=== PATIENT | female | born 1955 | race African-American/Black ===

== ENCOUNTER 2020-11-13 13:51 | Outpatient (CLI) | payer OTHER | END 2020-11-13 13:52 | disposition home or self-care (01) | LOC: CSHMAMMO 13:51 | PROVIDERS: ATTEND Family Medicine | DX: Z00.00 Encounter for general adult medical examination without abnormal findings (principal); Z12.31 Encounter for screening mammogram for malignant neoplasm of breast | CPT/HCPCS: 77063; 77067; 77080 ==

== ENCOUNTER 2021-11-16 10:04 | Outpatient (CLI) | payer OTHER, MEDICARE | END 2021-11-16 10:05 | disposition home or self-care (01) | LOC: CSHMAMMO 10:04 | PROVIDERS: ATTEND Family Medicine | DX: Z12.31 Encounter for screening mammogram for malignant neoplasm of breast (principal) | CPT/HCPCS: 77063; 77067 ==

== ENCOUNTER 2022-10-16 21:26 | Inpatient (IN) | payer OTHER ==
[2022-10-16 22:44] LABS: Hemoglobin 16.1 g/dL (12.0-15.5); Mean Corpuscular HGB CONC 35.2 g/dL (32.0-36.0); Mean Corpuscular Hemoglobin 32.3 pg (27.0-33.0); Mean Corpuscular Volume 91.8 fl (81.6-98.3); Mean Platelet Volume 9.9 fl (7.4-10.4); Platelet Count 182 10x3/uL (150-450); RBC Distribution Width 14.7 % (11.5-14.5); Red Blood Cell (RBC) Count 4.99 10x6/uL (3.90-5.03); White Blood Cell (WBC) Count 12.2 10x3/uL (3.5-10.5)
[2022-10-16 22:45] LABS: MDiff Complete? YES
[2022-10-16] MEDS ORDERED: methylPREDNISolone Sod Succ/PF 125 MG/2 ML VIAL ONE (22:54)
[2022-10-16] MEDS ORDERED: cefTRIAXone (ROCEPHIN) 2 GM VIAL ONE (22:55)
[2022-10-16 22:58] LABS: ALT (SGPT) 10 U/L (8-55); AST (SGOT) 20 U/L (5-34); Albumin 4.1 g/dL (3.4-4.8); Alkaline Phosphatase 70 U/L (40-110); Anion Gap 16 mmol/L (10-20); BUN (Urea Nitrogen) 9 mg/dL (9.8-20.1); Bilirubin, Total 0.6 mg/dL (0.2-1.2); Calc. Creatinine Clearance 0 mL/min (70-130); Carbon Dioxide 21 mmol/L (23-31); Chloride 97 mmol/L (98-107); Estimated GFR 96; Globulin 2.8 g/dL (2.4-3.5); Glucose 128 mg/dL (80-115); Lipase 5 U/L (8-78); Potassium 4.3 mmol/L (3.5-5.1); Protein, Total 6.9 g/dL (5.8-8.1); Sodium 130 mmol/L (136-145)
[2022-10-16] MEDS ORDERED: Ipratropium/Albuterol 3 ML NEB ONE ×2 (23:19→23:33)
[2022-10-16 23:33] LABS: Band 2 % (5-11); Lymphocytes 2 % (21-51); Monocytes 8 % (0-10); Neutrophil 88 % (42-75)
[2022-10-16 23:35] LABS: Diff Comment (RBC Morph SCRN) NORMAL; Platelet Morphology Comment Appears Adequate
[2022-10-16] MEDS ORDERED: Acetaminophen 325 MG TAB PO PRN (23:47)
[2022-10-16] MEDS ORDERED: Ondansetron PF 4 MG/2 ML Vial IVP PRN (23:47)
[2022-10-16] MEDS ORDERED: Ventolin HFA Inhaler 60 PUFF INHALER INH PRN (23:54)
[2022-10-17] MEDS ORDERED: Azithromycin 500 MG VIAL ONE (00:02)
[2022-10-17 00:08] LABS: SARS-CoV-2 NAA Rapid Test Not Detected (NotDetected)
[2022-10-17] MEDS ORDERED: Azithromycin 500 MG in Sodium Chloride 0.9% 250 ML 250 ML IVPB SCH (01:00)
[2022-10-17 03:47] LABS: #Monocytes 0.1 10x3/uL (0.0-1.1); #Neutrophils 9.9 10x3/uL (1.5-8.4); %Basophils 0.2 % (0.0-2.0); %Eosinophils 0.3 % (0.0-6.0); %Lymphocytes 3.3 % (18.0-47.0); %Monocytes 0.9 % (0.0-10.0); %Neutrophils 94.9 % (40.0-75.0); Hemoglobin 14.3 g/dL (12.0-15.5); Mean Corpuscular HGB CONC 33.3 g/dL (32.0-36.0); Mean Corpuscular Hemoglobin 31.4 pg (27.0-33.0); Mean Corpuscular Volume 94.3 fl (81.6-98.3); Mean Platelet Volume 10.5 fl (7.4-10.4); Platelet Count 181 10x3/uL (150-450); RBC Distribution Width 14.9 % (11.5-14.5); Red Blood Cell (RBC) Count 4.55 10x6/uL (3.90-5.03); White Blood Cell (WBC) Count 10.4 10x3/uL (3.5-10.5)
[2022-10-17 03:49] LABS: Anion Gap 13 mmol/L (10-20); BUN (Urea Nitrogen) 8 mg/dL (9.8-20.1); Calc. Creatinine Clearance 0 mL/min (70-130); Carbon Dioxide 21 mmol/L (23-31); Chloride 105 mmol/L (98-107); Potassium 3.8 mmol/L (3.5-5.1); Sodium 135 mmol/L (136-145)
[2022-10-17 03:50] LABS: Calcium 7.8 mg/dL (7.8-10.44); Estimated GFR 98; Glucose 133 mg/dL (80-115)
[2022-10-17] MEDS: Ipratropium/Albuterol 3 ML NEB NEB SCH ×5 (05:10→23:31)
[2022-10-17 05:18] LABS: Bilirubin Neg (Negative); Blood, Urine Negative (Negative); Clarity Slightly Cloudy (Clear); Glucose, Urine (Dipstick) Normal (Negative); Ketone, Urine Negative (Negative); Leukocyte Negative (Negative); Nitrite Negative (Negative); Protein, Urine (Dipstick) 30 mg/dl (Neg-Trace); Urobilinogen Normal mg/dL (Less than 2); pH, Urine 6.5 (5.0-9.0)
[2022-10-17 05:44] LABS: Bacteria/HPF None Seen HPF (None Seen); RBC/HPF 0-3 HPF (0-3); Squamous Epithelial 0-3 HPF (0-3); WBC/HPF 0-3 HPF (0-3)
[2022-10-17] MEDS ORDERED: methylPREDNISolone Sod Succ/PF 125 MG/2 ML VIAL ONE (06:22)
[2022-10-17] MEDS ORDERED: methylPREDNISolone Sod Succ 40 MG VIAL ONE (06:25)
[2022-10-17] MEDS: methylPREDNISolone Sod Succ 40 MG VIAL IVP SCH ×3 (06:37→20:04)
[2022-10-17] MEDS ORDERED: Ipratropium/Albuterol 3 ML NEB ONE (07:36)
[2022-10-17] MEDS: Lisinopril 10 MG TAB PO SCH (10:51)
[2022-10-17] MEDS: Clopidogrel Bisulfate 75 MG TAB PO SCH (10:51)
[2022-10-17] MEDS: Metoprolol Tartrate 25 MG TAB PO SCH ×2 (10:52→20:00)
[2022-10-17] MEDS: Aspirin 81 mg Enteric Coated Tablet PO SCH (10:52)
[2022-10-17 11:12] LABS: Magnesium 1.5 mg/dL (1.6-2.6); Phosphorus 3.1 mg/dL (2.3-4.7)
[2022-10-17] MEDS ORDERED: Electrolyte Replacement Protocol 1 EACH FS SCH (14:30)
[2022-10-17] MEDS ORDERED: Magnesium 2 GM/50 ML(in water) 2 GM in Premix Bag 1 BAG IVPB SCH ×2 (14:30→20:30)
[2022-10-17 15:58] LABS: Legionella Urinary Ag Negative (Negative)
[2022-10-17 15:59] LABS: Strep pneumo Urine Ag NEGATIVE (NEGATIVE)
[2022-10-17] MEDS: Cefepime 2 GM in Sodium Chloride 0.9% 100 ML IVPB SCH (16:07)
[2022-10-17] MEDS: Budesonide 0.5 MG/2 ML NEB NEB SCH (19:24)
[2022-10-17] MEDS: guaiFENesin ER 600 MG TAB PO SCH (20:00)
[2022-10-17] MEDS: Atorvastatin Calcium 40 MG TAB PO SCH (20:00)
[2022-10-17] MEDS ORDERED: Levalbuterol HCl 0.63 MG/3 ML NEB NEB SCH (20:15)
[2022-10-17] MEDS ORDERED: Mometasone/Formoterol 200/5 60 PUFF INH SCH (20:15)
[2022-10-17] MEDS ORDERED: cefTRIAXone\\ROCEPHIN 1 GM in Sodium Chloride 0.9% 100 ML IVPB SCH (23:59)
[2022-10-18] MEDS: methylPREDNISolone Sod Succ 40 MG VIAL IVP SCH ×4 (00:25→18:16)
[2022-10-18] MEDS: Azithromycin 500 MG in Sodium Chloride 0.9% 250 ML 250 ML IVPB SCH (00:35)
[2022-10-18] MEDS: Ipratropium/Albuterol 3 ML NEB NEB SCH ×6 (02:53→23:20)
[2022-10-18] MEDS: Cefepime 2 GM in Sodium Chloride 0.9% 100 ML IVPB SCH ×2 (03:35→16:36)
[2022-10-18 05:41] LABS: #Monocytes 0.5 10x3/uL (0.0-1.1); #Neutrophils 6.9 10x3/uL (1.5-8.4); %Basophils 0.1 % (0.0-2.0); %Lymphocytes 3.5 % (18.0-47.0); %Monocytes 6.6 % (0.0-10.0); %Neutrophils 89.7 % (40.0-75.0); Hemoglobin 14.4 g/dL (12.0-15.5); Mean Corpuscular Hemoglobin 31.3 pg (27.0-33.0); Mean Platelet Volume 10.5 fl (7.4-10.4); Platelet Count 161 10x3/uL (150-450); RBC Distribution Width 15.1 % (11.5-14.5); White Blood Cell (WBC) Count 7.7 10x3/uL (3.5-10.5)
[2022-10-18 06:01] LABS: Anion Gap 15 mmol/L (10-20); BUN (Urea Nitrogen) 11 mg/dL (9.8-20.1); Calc. Creatinine Clearance 71 mL/min (70-130); Calcium 8.3 mg/dL (7.8-10.44); Carbon Dioxide 24 mmol/L (23-31); Chloride 102 mmol/L (98-107); Estimated GFR 98; Glucose 116 mg/dL (80-115); Magnesium 2.8 mg/dL (1.6-2.6); Potassium 4.6 mmol/L (3.5-5.1); Sodium 136 mmol/L (136-145)
[2022-10-18] MEDS ORDERED: Mometasone/Formoterol 200/5 60 PUFF INH SCH (06:30)
[2022-10-18] MEDS: Budesonide 0.5 MG/2 ML NEB NEB SCH ×2 (08:20→19:40)
[2022-10-18] MEDS: guaiFENesin ER 600 MG TAB PO SCH ×2 (09:12→20:56)
[2022-10-18] MEDS: Aspirin 81 mg Enteric Coated Tablet PO SCH (09:12)
[2022-10-18] MEDS: Loratadine 10 MG TAB PO SCH (09:12)
[2022-10-18] MEDS: Metoprolol Tartrate 25 MG TAB PO SCH ×2 (09:12→20:56)
[2022-10-18] MEDS: Lisinopril 10 MG TAB PO SCH (09:12)
[2022-10-18] MEDS: Clopidogrel Bisulfate 75 MG TAB PO SCH (09:13)
[2022-10-18] MEDS: Ipratropium/Albuterol 3 ML NEB NEB PRN (13:05)
[2022-10-18 16:02] LABS: Actual Bicarbonate (HCO3v) 28 mEq/L (22-28); Base Excess -1.1 mEq/L (-2 - +2); Puncture Site Other Site; pH (venous) 7.26 (7.32-7.43)
[2022-10-18] MEDS: Atorvastatin Calcium 40 MG TAB PO SCH (20:56)
[2022-10-19] MEDS: methylPREDNISolone Sod Succ 40 MG VIAL IVP SCH ×4 (00:16→18:14)
[2022-10-19] MEDS: Azithromycin 500 MG in Sodium Chloride 0.9% 250 ML 250 ML IVPB SCH ×2 (00:16→23:28)
[2022-10-19] MEDS: Cefepime 2 GM in Sodium Chloride 0.9% 100 ML IVPB SCH ×2 (02:22→14:03)
[2022-10-19] MEDS: Ipratropium/Albuterol 3 ML NEB NEB SCH ×6 (03:05→22:45)
[2022-10-19 04:01] LABS: Actual Bicarbonate (HCO3v) 28 mEq/L (22-28); Base Excess 3.5 mEq/L (-2 - +2); Calcium, Ionized (venous) 1.06 mmol/L (1.16-1.32); Chloride (VBG) 100 mmol/L (98-106); Critical Notified By: CP.PH; Hemoglobin (Hb) 15.3 g/dL (11.7-16.1); Potassium (VBG) 4.58 mmol/L (3.70-5.30); Puncture Site Other Site; Sodium 134.3 mmol/L (133-146); pH (venous) 7.43 (7.32-7.43)
[2022-10-19 05:12] LABS: #Eosinphils 0.1 10x3/uL (0.0-0.5); #Monocytes 0.2 10x3/uL (0.0-1.1); #Neutrophils 5.5 10x3/uL (1.5-8.4); %Basophils 0.2 % (0.0-2.0); %Eosinophils 1.9 % (0.0-6.0); %Lymphocytes 6.1 % (18.0-47.0); %Monocytes 2.4 % (0.0-10.0); %Neutrophils 89.2 % (40.0-75.0); Hemoglobin 14.5 g/dL (12.0-15.5); Mean Corpuscular HGB CONC 33.2 g/dL (32.0-36.0); Mean Corpuscular Hemoglobin 31.3 pg (27.0-33.0); Mean Corpuscular Volume 94.2 fl (81.6-98.3); Mean Platelet Volume 11.4 fl (7.4-10.4); Platelet Count 158 10x3/uL (150-450); RBC Distribution Width 15.1 % (11.5-14.5); Red Blood Cell (RBC) Count 4.64 10x6/uL (3.90-5.03); White Blood Cell (WBC) Count 6.2 10x3/uL (3.5-10.5)
[2022-10-19 05:23] LABS: Anion Gap 16 mmol/L (10-20); BUN (Urea Nitrogen) 16 mg/dL (9.8-20.1); Calc. Creatinine Clearance 74 mL/min (70-130); Calcium 8.7 mg/dL (7.8-10.44); Carbon Dioxide 24 mmol/L (23-31); Chloride 101 mmol/L (98-107); Estimated GFR 99; Glucose 100 mg/dL (80-115); Potassium 4.6 mmol/L (3.5-5.1); Sodium 136 mmol/L (136-145)
[2022-10-19] MEDS: Budesonide 0.5 MG/2 ML NEB NEB SCH ×2 (07:20→19:05)
[2022-10-19] MEDS: Metoprolol Tartrate 25 MG TAB PO SCH ×2 (09:15→20:29)
[2022-10-19] MEDS: Aspirin 81 mg Enteric Coated Tablet PO SCH (09:15)
[2022-10-19] MEDS: guaiFENesin ER 600 MG TAB PO SCH ×2 (09:15→20:29)
[2022-10-19] MEDS: Clopidogrel Bisulfate 75 MG TAB PO SCH (09:15)
[2022-10-19] MEDS: Heparin 5,000 UNITS/ML VIAL SC SCH ×2 (09:16→20:29)
[2022-10-19] MEDS: Lisinopril 10 MG TAB PO SCH (09:16)
[2022-10-19] MEDS: Loratadine 10 MG TAB PO SCH (09:16)
[2022-10-19] MEDS: Benzonatate 100 MG CAP PO PRN (16:19)
[2022-10-19] MEDS: Atorvastatin Calcium 40 MG TAB PO SCH (20:29)
[2022-10-19] MEDS: methylPREDNISolone Sod Succ/PF 125 MG/2 ML VIAL IVP SCH (23:44)
[2022-10-20] MEDS: Ipratropium/Albuterol 3 ML NEB NEB SCH ×6 (02:40→23:12)
[2022-10-20] MEDS: Cefepime 2 GM in Sodium Chloride 0.9% 100 ML IVPB SCH ×2 (04:18→15:12)
[2022-10-20] MEDS: methylPREDNISolone Sod Succ/PF 125 MG/2 ML VIAL IVP SCH ×3 (05:28→17:22)
[2022-10-20 05:56] VITALS: BMI 21.2
[2022-10-20 06:26] LABS: Anion Gap 13 mmol/L (10-20); BUN (Urea Nitrogen) 17 mg/dL (9.8-20.1); Calc. Creatinine Clearance 76 mL/min (70-130); Calcium 8.5 mg/dL (7.8-10.44); Carbon Dioxide 27 mmol/L (23-31); Chloride 101 mmol/L (98-107); Estimated GFR 99; Glucose 113 mg/dL (80-115); Magnesium 2.1 mg/dL (1.6-2.6); Potassium 4.2 mmol/L (3.5-5.1); Sodium 137 mmol/L (136-145)
[2022-10-20 07:16] LABS: #Monocytes 0.2 10x3/uL (0.0-1.1); #Neutrophils 4.3 10x3/uL (1.5-8.4); %Lymphocytes 8.9 % (18.0-47.0); %Monocytes 3.1 % (0.0-10.0); %Neutrophils 87.6 % (40.0-75.0); Hemoglobin 13.9 g/dL (12.0-15.5); Mean Corpuscular HGB CONC 33.7 g/dL (32.0-36.0); Mean Corpuscular Hemoglobin 31.4 pg (27.0-33.0); Mean Corpuscular Volume 93.2 fl (81.6-98.3); Mean Platelet Volume 10.9 fl (7.4-10.4); Platelet Count 180 10x3/uL (150-450); RBC Distribution Width 14.7 % (11.5-14.5); Red Blood Cell (RBC) Count 4.43 10x6/uL (3.90-5.03); White Blood Cell (WBC) Count 4.9 10x3/uL (3.5-10.5)
[2022-10-20] MEDS: Mometasone/Formoterol 200/5 60 PUFF INH SCH ×2 (07:34→20:20)
[2022-10-20] MEDS: Lisinopril 10 MG TAB PO SCH (08:02)
[2022-10-20] MEDS: Clopidogrel Bisulfate 75 MG TAB PO SCH (08:02)
[2022-10-20] MEDS: guaiFENesin ER 600 MG TAB PO SCH ×2 (08:02→21:15)
[2022-10-20] MEDS: Loratadine 10 MG TAB PO SCH (08:02)
[2022-10-20] MEDS: Heparin 5,000 UNITS/ML VIAL SC SCH ×2 (08:02→21:15)
[2022-10-20] MEDS: Aspirin 81 mg Enteric Coated Tablet PO SCH (08:02)
[2022-10-20] MEDS: Metoprolol Tartrate 25 MG TAB PO SCH ×2 (08:02→21:15)
[2022-10-20] MEDS ORDERED: Cefepime 2 GM VIAL ONE (15:03)
[2022-10-20] MEDS ORDERED: methylPREDNISolone Sod Succ/PF 125 MG/2 ML VIAL IVP SCH ×2 (20:58)
[2022-10-20] MEDS: Atorvastatin Calcium 40 MG TAB PO SCH (21:15)
[2022-10-20] MEDS: Azithromycin 500 MG in Sodium Chloride 0.9% 250 ML 250 ML IVPB SCH (23:50)
[2022-10-20] MEDS ORDERED: methylPREDNISolone Sod Succ 40 MG VIAL IVP SCH (23:59)
[2022-10-21] MEDS: Ipratropium/Albuterol 3 ML NEB NEB SCH ×5 (02:46→19:46)
[2022-10-21] MEDS: Cefepime 2 GM in Sodium Chloride 0.9% 100 ML IVPB SCH ×2 (03:12→15:48)
[2022-10-21 03:58] LABS: Anion Gap 11 mmol/L (10-20); BUN (Urea Nitrogen) 17 mg/dL (9.8-20.1); Calc. Creatinine Clearance 73 mL/min (70-130); Calcium 8.4 mg/dL (7.8-10.44); Carbon Dioxide 30 mmol/L (23-31); Chloride 102 mmol/L (98-107); Estimated GFR 99; Glucose 121 mg/dL (80-115); Potassium 4.2 mmol/L (3.5-5.1); Sodium 139 mmol/L (136-145)
[2022-10-21 04:23] LABS: Hemoglobin 13.8 g/dL (12.0-15.5); Mean Corpuscular HGB CONC 33.9 g/dL (32.0-36.0); Mean Corpuscular Hemoglobin 31.9 pg (27.0-33.0); Mean Corpuscular Volume 94.2 fl (81.6-98.3); Mean Platelet Volume 10.3 fl (7.4-10.4); Platelet Count 187 10x3/uL (150-450); RBC Distribution Width 14.8 % (11.5-14.5); Red Blood Cell (RBC) Count 4.32 10x6/uL (3.90-5.03); White Blood Cell (WBC) Count 4.9 10x3/uL (3.5-10.5)
[2022-10-21 04:27] LABS: Actual Bicarbonate (HCO3v) 36 mEq/L (22-28); Base Excess 6.5 mEq/L (-2 - +2); Calcium, Ionized (venous) 1.14 mmol/L (1.16-1.32); Chloride (VBG) 99 mmol/L (98-106); Critical Notified By: CP.PH; Hemoglobin (Hb) 14.4 g/dL (11.7-16.1); Puncture Site Other Site; RapidComm Collect By LAB.YY; Sodium 134.5 mmol/L (133-146); pH (venous) 7.31 (7.32-7.43)
[2022-10-21 05:08] LABS: MDiff Complete? YES
[2022-10-21 05:13] LABS: Lymphocytes 11 % (21-51); Monocytes 2 % (0-10); Neutrophil 87 % (42-75)
[2022-10-21] MEDS: Mometasone/Formoterol 200/5 60 PUFF INH SCH ×2 (08:04→20:18)
[2022-10-21] MEDS: methylPREDNISolone Sod Succ 40 MG VIAL IVP SCH ×2 (08:29→20:29)
[2022-10-21] MEDS: Heparin 5,000 UNITS/ML VIAL SC SCH ×2 (08:29→20:29)
[2022-10-21] MEDS: guaiFENesin ER 600 MG TAB PO SCH ×2 (08:29→20:29)
[2022-10-21] MEDS: Metoprolol Tartrate 25 MG TAB PO SCH ×2 (08:29→20:29)
[2022-10-21] MEDS: Loratadine 10 MG TAB PO SCH (08:29)
[2022-10-21] MEDS: Clopidogrel Bisulfate 75 MG TAB PO SCH (08:29)
[2022-10-21] MEDS: Aspirin 81 mg Enteric Coated Tablet PO SCH (08:29)
[2022-10-21] MEDS: Lisinopril 10 MG TAB PO SCH (08:30)
[2022-10-21] MEDS: Atorvastatin Calcium 40 MG TAB PO SCH (20:29)
[2022-10-22] MEDS: Azithromycin 500 MG in Sodium Chloride 0.9% 250 ML 250 ML IVPB SCH (00:02)
[2022-10-22] MEDS: Ipratropium/Albuterol 3 ML NEB NEB SCH ×7 (00:07→23:05)
[2022-10-22] MEDS: Cefepime 2 GM in Sodium Chloride 0.9% 100 ML IVPB SCH ×2 (03:15→14:34)
[2022-10-22 07:52] LABS: #Monocytes 0.5 10x3/uL (0.0-1.1); #Neutrophils 5.2 10x3/uL (1.5-8.4); %Basophils 0.2 % (0.0-2.0); %Lymphocytes 13.4 % (18.0-47.0); %Monocytes 7.1 % (0.0-10.0); %Neutrophils 78.8 % (40.0-75.0); Hemoglobin 13.9 g/dL (12.0-15.5); Mean Corpuscular HGB CONC 33.4 g/dL (32.0-36.0); Mean Corpuscular Hemoglobin 31.6 pg (27.0-33.0); Mean Corpuscular Volume 94.5 fl (81.6-98.3); Mean Platelet Volume 10.3 fl (7.4-10.4); Platelet Count 195 10x3/uL (150-450); RBC Distribution Width 14.8 % (11.5-14.5); White Blood Cell (WBC) Count 6.6 10x3/uL (3.5-10.5)
[2022-10-22 08:09] LABS: Anion Gap 10 mmol/L (10-20); BUN (Urea Nitrogen) 13 mg/dL (9.8-20.1); Calc. Creatinine Clearance 78 mL/min (70-130); Calcium 8.3 mg/dL (7.8-10.44); Carbon Dioxide 31 mmol/L (23-31); Chloride 101 mmol/L (98-107); Estimated GFR 100; Glucose 100 mg/dL (80-115); Sodium 138 mmol/L (136-145)
[2022-10-22] MEDS: Lisinopril 10 MG TAB PO SCH (08:21)
[2022-10-22] MEDS: Aspirin 81 mg Enteric Coated Tablet PO SCH (08:22)
[2022-10-22] MEDS: Clopidogrel Bisulfate 75 MG TAB PO SCH (08:22)
[2022-10-22] MEDS: Metoprolol Tartrate 25 MG TAB PO SCH ×2 (08:22→21:13)
[2022-10-22] MEDS: guaiFENesin ER 600 MG TAB PO SCH ×2 (08:22→21:13)
[2022-10-22] MEDS: Loratadine 10 MG TAB PO SCH (08:22)
[2022-10-22] MEDS: Heparin 5,000 UNITS/ML VIAL SC SCH ×2 (08:23→21:11)
[2022-10-22] MEDS: Mometasone/Formoterol 200/5 60 PUFF INH SCH ×2 (10:20→19:30)
[2022-10-22] MEDS: methylPREDNISolone Sod Succ 40 MG VIAL IVP SCH ×2 (11:35→21:13)
[2022-10-22] MEDS: Atorvastatin Calcium 40 MG TAB PO SCH (21:13)
[2022-10-23] MEDS: Ipratropium/Albuterol 3 ML NEB NEB SCH ×6 (03:57→23:29)
[2022-10-23] MEDS: Mometasone/Formoterol 200/5 60 PUFF INH SCH ×2 (07:19→19:57)
[2022-10-23 07:20] LABS: #Monocytes 0.4 10x3/uL (0.0-1.1); #Neutrophils 4.9 10x3/uL (1.5-8.4); %Lymphocytes 13.1 % (18.0-47.0); %Neutrophils 79.4 % (40.0-75.0); Hemoglobin 14.4 g/dL (12.0-15.5); Mean Corpuscular HGB CONC 33.8 g/dL (32.0-36.0); Mean Corpuscular Hemoglobin 31.5 pg (27.0-33.0); Mean Corpuscular Volume 93.2 fl (81.6-98.3); Mean Platelet Volume 10.6 fl (7.4-10.4); Platelet Count 221 10x3/uL (150-450); RBC Distribution Width 14.6 % (11.5-14.5); Red Blood Cell (RBC) Count 4.57 10x6/uL (3.90-5.03); White Blood Cell (WBC) Count 6.2 10x3/uL (3.5-10.5)
[2022-10-23 07:31] LABS: Anion Gap 12 mmol/L (10-20); BUN (Urea Nitrogen) 9 mg/dL (9.8-20.1); Calc. Creatinine Clearance 80 mL/min (70-130); Calcium 8.7 mg/dL (7.8-10.44); Carbon Dioxide 33 mmol/L (23-31); Chloride 97 mmol/L (98-107); Estimated GFR 101; Glucose 100 mg/dL (80-115); Potassium 3.7 mmol/L (3.5-5.1); Sodium 138 mmol/L (136-145)
[2022-10-23] MEDS ORDERED: predniSONE 20 MG TAB PO SCH ×2 (08:00→15:00)
[2022-10-23] MEDS: Aspirin 81 mg Enteric Coated Tablet PO SCH (08:59)
[2022-10-23] MEDS: Clopidogrel Bisulfate 75 MG TAB PO SCH (08:59)
[2022-10-23] MEDS: Benzonatate 100 MG CAP PO PRN (08:59)
[2022-10-23] MEDS: Lisinopril 10 MG TAB PO SCH (08:59)
[2022-10-23] MEDS: Loratadine 10 MG TAB PO SCH (08:59)
[2022-10-23] MEDS: Cefdinir 300 MG CAP PO SCH ×2 (08:59→20:31)
[2022-10-23] MEDS: Metoprolol Tartrate 25 MG TAB PO SCH ×2 (09:00→20:32)
[2022-10-23] MEDS: guaiFENesin ER 600 MG TAB PO SCH ×2 (09:00→20:32)
[2022-10-23] MEDS: Heparin 5,000 UNITS/ML VIAL SC SCH ×2 (09:03→20:31)
[2022-10-23 09:58] LABS: Actual Bicarbonate (HCO3v) 32.9 mEq/L (22-28); Base Excess 6.8 mEq/L (-2 - +2); Calcium, Ionized (venous) 1.21 mmol/L (1.16-1.32); Chloride (VBG) 90 mmol/L (98-106); Hematocrit-VBG 44 % (36.0-47.0); Potassium (VBG) 3.93 mmol/L (3.70-5.30); Puncture Site Other Site; RapidComm Collect By LAB; Sodium 142.9 mmol/L (133-146); pH (venous) 7.416 (7.32-7.43)
[2022-10-23] MEDS: Ipratropium/Albuterol 3 ML NEB NEB PRN (14:07)
[2022-10-23] MEDS: Atorvastatin Calcium 40 MG TAB PO SCH (20:31)
[2022-10-24] MEDS: Ipratropium/Albuterol 3 ML NEB NEB SCH ×4 (03:28→15:40)
[2022-10-24 05:17] LABS: Base Excess 7.8 mEq/L (-2 - +2); Calcium, Ionized (venous) 1.23 mmol/L (1.16-1.32); Chloride (VBG) 90 mmol/L (98-106); Critical Notified By: CP.PH; Hematocrit-VBG 43 % (36.0-47.0); Hemoglobin (Hb) 14.6 g/dL (11.7-16.1); Potassium (VBG) 3.79 mmol/L (3.70-5.30); Puncture Site Other Site; RapidComm Collect By LAB.ER; Sodium 140.7 mmol/L (133-146); pH (venous) 7.422 (7.32-7.43)
[2022-10-24 05:31] LABS: Hemoglobin 13.8 g/dL (12.0-15.5); Platelet Count 240 10x3/uL (150-450)
[2022-10-24 05:37] LABS: Phosphorus 3.1 mg/dL (2.3-4.7)
[2022-10-24 05:38] LABS: Anion Gap 11 mmol/L (10-20); BUN (Urea Nitrogen) 13 mg/dL (9.8-20.1); Calc. Creatinine Clearance 73 mL/min (70-130); Calcium 8.7 mg/dL (7.8-10.44); Carbon Dioxide 33 mmol/L (23-31); Chloride 96 mmol/L (98-107); Estimated GFR 99; Glucose 101 mg/dL (80-115); Magnesium 1.8 mg/dL (1.6-2.6); Potassium 3.7 mmol/L (3.5-5.1); Sodium 136 mmol/L (136-145)
[2022-10-24] MEDS ORDERED: Magnesium 2 GM/50 ML(in water) 2 GM in Premix Bag 1 BAG IVPB SCH (06:00)
[2022-10-24] MEDS: Mometasone/Formoterol 200/5 60 PUFF INH SCH (06:54)
[2022-10-24] MEDS ORDERED: predniSONE 20 MG TAB PO SCH (08:00)
[2022-10-24] MEDS: Lisinopril 10 MG TAB PO SCH (09:43)
[2022-10-24] MEDS: guaiFENesin ER 600 MG TAB PO SCH (09:43)
[2022-10-24] MEDS: Clopidogrel Bisulfate 75 MG TAB PO SCH (09:43)
[2022-10-24] MEDS: Aspirin 81 mg Enteric Coated Tablet PO SCH (09:44)
[2022-10-24] MEDS: Metoprolol Tartrate 25 MG TAB PO SCH (09:44)
[2022-10-24] MEDS: Loratadine 10 MG TAB PO SCH (09:44)
[2022-10-24] MEDS: Cefdinir 300 MG CAP PO SCH (09:45)
[2022-10-24] MEDS: Heparin 5,000 UNITS/ML VIAL SC SCH (09:46)
[2022-10-24 13:34] VITALS: BP 119/67; TEMP 98.6
== END 2022-10-24 16:30 | disposition home health service (06) | DRG 871 ==
LOC: CSHERS 21:26 → CSHERHOLD 23:47 → UNDOADMIN 10-17 02:12 → CSHERHOLD 10-17 10:55 → CSHTELE 10-17 10:55 → CSHIMCU 10-18 17:46 → CSHTELE 10-20 18:34
PROVIDERS: ADMIT Internal Medicine; ATTEND Family Medicine
PROC: 3E03329 Introduction of Other Anti-infective into Peripheral Vein, Percutaneous Approach (ICD-10-PCS; principal; 2022-10-16)
PROC: 4A133R1 Monitoring of Arterial Saturation, Peripheral, Percutaneous Approach (ICD-10-PCS; 2022-10-18)
DX: A41.9 Sepsis, unspecified organism (principal); J15.6 Pneumonia due to other Gram-negative bacteria; J96.21 Acute and chronic respiratory failure with hypoxia; J44.1 Chronic obstructive pulmonary disease with (acute) exacerbation; J44.0 Chronic obstructive pulmonary disease with (acute) lower respiratory infection; E87.20 Acidosis, unspecified; R65.20 Severe sepsis without septic shock; I25.10 Atherosclerotic heart disease of native coronary artery without angina pectoris; I10 Essential (primary) hypertension; E78.5 Hyperlipidemia, unspecified; R53.81 Other malaise; K21.9 Gastro-esophageal reflux disease without esophagitis; F17.210 Nicotine dependence, cigarettes, uncomplicated; E87.6 Hypokalemia; E83.42 Hypomagnesemia; Z20.822 Contact with and (suspected) exposure to COVID-19; Z99.81 Dependence on supplemental oxygen; Z79.899 Other long term (current) drug therapy; Z79.02 Long term (current) use of antithrombotics/antiplatelets; Z79.82 Long term (current) use of aspirin; Z79.52 Long term (current) use of systemic steroids; Z90.710 Acquired absence of both cervix and uterus; Z95.5 Presence of coronary angioplasty implant and graft
CPT/HCPCS: 36415; 71045; 80048; 80053; 81003; 81015; 82805; 83605; 83690; 83735; 83880; 84100; 84145; 84484; 85014; 85018; 85025; 85049; 86140; 87040; 87086; 87449; 87899; 93005; 93010; 94640; 94660; 94664; 94760; 94762; 96365; 96367; 96375; J0456; J0692; J0696; J1644; J1650; J2920; J2930; J3475; J3490; J7050; J7512; J7611; J7614; J7620; J7626

== ENCOUNTER 2023-12-22 14:30 | Outpatient (CLI) | payer OTHER, MEDICAID | END 2023-12-22 14:31 | disposition home or self-care (01) | LOC: CSHMAMMO 14:30 | PROVIDERS: ATTEND Family Medicine | DX: Z12.31 Encounter for screening mammogram for malignant neoplasm of breast (principal); Z13.820 Encounter for screening for osteoporosis; Z78.0 Asymptomatic menopausal state | CPT/HCPCS: 77063; 77067; 77080 ==

== ENCOUNTER 2024-04-17 11:21 | Inpatient (IN) | payer OTHER ==
[2024-04-17] MEDS ORDERED: Magnesium 2 GM/50 ML BAG (IN WATER) ONE (11:26)
[2024-04-17] MEDS ORDERED: methylPREDNISolone Sod Succ/PF 125 MG/2 ML VIAL ONE (11:26)
[2024-04-17] MEDS ORDERED: Albuterol 2.5 MG (3 mL) NEB ONE ×2 (11:33→13:28)
[2024-04-17] MEDS ORDERED: Ipratropium Bromide 2.5 ml Neb ONE ×2 (11:33→13:28)
[2024-04-17 11:54] LABS: #Basophils 0.06 10x3/uL (0.0-0.2); #Eosinophils 0.42 10x3/uL (0.0-0.5); #Monocytes 1.03 10x3/uL (0.0-1.1); #Neutrophils 5.44 10x3/uL (1.5-8.4); %Basophils 0.7 % (0.0-2.0); %Lymphocytes 17.1 % (18.0-47.0); %Monocytes 12.2 % (0.0-10.0); %Neutrophils 64.5 % (40.0-75.0); Hematocrit 44.2 % (34.9-44.5); Hemoglobin 14.5 g/dL (12.0-15.5); Mean Corpuscular HGB CONC 32.8 g/dL (32.0-36.0); Mean Corpuscular Hemoglobin 31.5 pg (27.0-33.0); Mean Corpuscular Volume 95.9 fL (81.6-98.3); Mean Platelet Volume 9.8 fL (7.4-10.4); Platelet Count 252 10x3/uL (150-450); RBC Distribution Width 14.6 % (11.5-14.5); Red Blood Cell (RBC) Count 4.61 10x6/uL (3.90-5.03); White Blood Cell (WBC) Count 8.4 10x3/uL (3.5-10.5)
[2024-04-17 12:16] LABS: ALT (SGPT) 14 U/L (8-55); AST (SGOT) 22 U/L (5-34); Alkaline Phosphatase 70 U/L (40-110); Anion Gap 15 mmol/L (10-20); BUN (Urea Nitrogen) 9 mg/dL (9.8-20.1); Bilirubin, Total 0.6 mg/dL (0.2-1.2); Calc. Creatinine Clearance 0 mL/min (70-130); Calcium 9.6 mg/dL (7.8-10.44); Carbon Dioxide 27 mmol/L (23-31); Chloride 98 mmol/L (98-107); Estimated GFR 95; Globulin 3.2 g/dL (2.4-3.5); Glucose 138 mg/dL (80-115); Magnesium 1.9 mg/dL (1.6-2.6); Potassium 4.5 mmol/L (3.5-5.1); Protein, Total 7.2 g/dL (5.8-8.1); Sodium 135 mmol/L (136-145)
[2024-04-17 12:17] LABS: Troponin I 0.012 ng/mL (< 0.028)
[2024-04-17 15:31] LABS: Actual Bicarbonate (HCO3a) 25.7 mEq/L (22-28); Analyzer IN Cardio CS ER; Base Excess (BEa) -1.5 mEq/L (-2.0 to +3.0); Calcium, Ionized (arterial) 1.18 mmol/L (1.12-1.30); Carboxyhemoglobin (COHb) 0.4 gm% (0.0-3.0); Hematocrit-ABG 45 % (36.0-47.0); Hemoglobin (Hb) 15.3 g/dL (12.0-16.0); O2 Tension (PaO2), arterial 45.2 mmHg (> 80.0); Potassium - ABG Lab 4.39 mmol/L (3.70-5.30); Puncture Site Right Radial artery; pH, Arterial 7.304 (7.35-7.45)
[2024-04-17] MEDS ORDERED: Ondansetron ODT 4 MG TAB PO PRN (16:25)
[2024-04-17] MEDS ORDERED: Albuterol 2.5 MG (3 mL) NEB NEB PRN (16:25)
[2024-04-17] MEDS ORDERED: Acetaminophen 325 MG TAB PO PRN (16:25)
[2024-04-17] MEDS ORDERED: Acetaminophen 650 MG Suppository PR PRN (16:25)
[2024-04-17] MEDS ORDERED: Ondansetron PF 4 MG/2 ML Vial IVP PRN (16:25)
[2024-04-17 17:54] VITALS: BMI 22.6
[2024-04-17] MEDS: methylPREDNISolone Sod Succ 40 MG VIAL IVP SCH (18:06)
[2024-04-17] MEDS ORDERED: Mometasone 200 MCG/Formoterol 5 MCG 60 PUFF INHALER INH SCH (18:30)
[2024-04-17] MEDS ORDERED: Ipratropium/Albuterol 3 ML NEB NEB PRN (18:35)
[2024-04-17] MEDS: cefTRIAXone\\ROCEPHIN 1 GM in Sodium Chloride 0.9% 100 ML IVPB SCH (18:49)
[2024-04-17] MEDS: Budesonide 0.5 MG/2 ML NEB INH SCH (19:10)
[2024-04-17] MEDS: Ipratropium/Albuterol 3 ML NEB NEB SCH (19:15)
[2024-04-17] MEDS: Arformoterol 15 MCG/2 ML NEB NEB SCH (19:15)
[2024-04-17 19:58] LABS: ALV-art Gradient 134.895 mmHg (0-20); Actual Bicarbonate (HCO3a) 25.3 mEq/L (22-28); Analyzer IN Cardio CS ICU; Base Excess (BEa) -2.9 mEq/L (-2.0 to +3.0); CO2 Tension 58.1 mmHg (35.0-45.0); Calcium, Ionized (arterial) 1.24 mmol/L (1.12-1.30); Carboxyhemoglobin (COHb) 0.7 gm% (0.0-3.0); Critical Notified By: CP.PH; Hematocrit-ABG 44 % (36.0-47.0); O2 Tension (PaO2), arterial 34.9 mmHg (> 80.0); Puncture Site Other Site; RapidComm Collect By CP.PH; pH, Arterial 7.257 (7.35-7.45)
[2024-04-17] MEDS: guaiFENesin ER 600 MG TAB PO SCH (20:46)
[2024-04-17] MEDS: Azithromycin 500 MG in Sodium Chloride 0.9% 250 ML 250 ML IVPB SCH (20:46)
[2024-04-17 20:53] LABS: Actual Bicarbonate (HCO3a) 25.7 mEq/L (22-28); Analyzer IN Cardio CS NICU; Base Excess (BEa) -1.8 mEq/L (-2.0 to +3.0); CO2 Tension 54.3 mmHg (35.0-45.0); Calcium, Ionized (arterial) 1.17 mmol/L (1.12-1.30); Carboxyhemoglobin (COHb) 0.7 gm% (0.0-3.0); Critical Notified Whom: MD; Hematocrit-ABG 44 % (36.0-47.0); O2 Tension (PaO2), arterial 41.8 mmHg (> 80.0); Potassium - ABG Lab 4.34 mmol/L (3.70-5.30); Puncture Site Left Radial artery; pH, Arterial 7.293 (7.35-7.45)
[2024-04-17 20:56] LABS: ALV-art Gradient 132.745 mmHg (0-20)
[2024-04-18 04:30] LABS: Hematocrit 40.1 % (34.9-44.5); Hemoglobin 13.2 g/dL (12.0-15.5); Mean Corpuscular HGB CONC 32.9 g/dL (32.0-36.0); Mean Corpuscular Hemoglobin 31.1 pg (27.0-33.0); Mean Corpuscular Volume 94.4 fL (81.6-98.3); Mean Platelet Volume 9.9 fL (7.4-10.4); Platelet Count 223 10x3/uL (150-450); RBC Distribution Width 14.6 % (11.5-14.5); Red Blood Cell (RBC) Count 4.25 10x6/uL (3.90-5.03); White Blood Cell (WBC) Count 4.5 10x3/uL (3.5-10.5)
[2024-04-18 04:42] LABS: Anion Gap 17 mmol/L (10-20); BUN (Urea Nitrogen) 19 mg/dL (9.8-20.1); Calc. Creatinine Clearance 61 mL/min (70-130); Calcium 9.2 mg/dL (7.8-10.44); Carbon Dioxide 24 mmol/L (23-31); Chloride 99 mmol/L (98-107); Estimated GFR 84; Glucose 145 mg/dL (80-115); Potassium 4.4 mmol/L (3.5-5.1); Sodium 136 mmol/L (136-145)
[2024-04-18 06:53] LABS: Band 1 % (5-11); Lymphocytes 7 % (21-51); Monocytes 3 % (0-10)
[2024-04-18 06:54] LABS: Platelet Adequacy Comment Appears Adequate; RBC Morph Comment Within Normal Limits
[2024-04-18 08:25] LABS: Analyzer IN Cardio CS ER; Base Excess (BEa) -0.4 mEq/L (-2.0 to +3.0); CO2 Tension 43.7 mmHg (35.0-45.0); Carboxyhemoglobin (COHb) 0.3 gm% (0.0-3.0); Critical Notified Whom: ZOVAN; Hematocrit-ABG 42 % (36.0-47.0); Hemoglobin (Hb) 14.4 g/dL (12.0-16.0); O2 Tension (PaO2), arterial 66.2 mmHg (> 80.0); Puncture Site Right Brachial art; pH, Arterial 7.376 (7.35-7.45)
[2024-04-18 08:28] LABS: ALV-art Gradient 121.595 mmHg (0-20)
[2024-04-18] MEDS: FLU (Fluad Triv) TS24-25 (65UP)/MF59C/PF 45 MCG/0.5 ML Syringe IM ONE (11:07)
[2024-04-18] MEDS: Pantoprazole 40 MG VIAL IVP SCH (11:17)
[2024-04-18] MEDS: Enoxaparin 40 MG (0.4 mL) SYRINGE SC SCH (11:17)
[2024-04-18] MEDS: Clopidogrel Bisulfate 75 MG TAB PO SCH (11:18)
[2024-04-18 13:45] LABS: Influenza A by NAA Not Detected (NotDetected); Influenza B by NAA Not Detected (NotDetected); RSV by NAA Not Detected (NotDetected); SARS-CoV-2 NAA Rapid Test Not Detected (NotDetected)
[2024-04-18 13:52] LABS: MDiff Complete? YES
[2024-04-18 14:22] VITALS: BP 110/68; TEMP 97.9
[2024-04-18] MEDS ORDERED: Rosuvastatin 20 MG TAB PO SCH (21:00)
[2024-04-19] MEDS ORDERED: Pantoprazole 40 MG VIAL IVP SCH (09:00)
== END 2024-04-18 14:22 | disposition short-term general hospital (02) | DRG 189 ==
LOC: CSHERS 11:21 → CSHTELE 16:00
PROVIDERS: ADMIT Family Medicine; ATTEND Family Medicine
PROC: 4A133R1 Monitoring of Arterial Saturation, Peripheral, Percutaneous Approach (ICD-10-PCS; principal; 2024-04-17)
PROC: 5A09357 Assistance with Respiratory Ventilation, Less than 24 Consecutive Hours, Continuous Positive Airway Pressure (ICD-10-PCS; 2024-04-17)
DX: J96.21 Acute and chronic respiratory failure with hypoxia (principal); J44.1 Chronic obstructive pulmonary disease with (acute) exacerbation; J96.22 Acute and chronic respiratory failure with hypercapnia; I10 Essential (primary) hypertension; E78.5 Hyperlipidemia, unspecified; I25.10 Atherosclerotic heart disease of native coronary artery without angina pectoris; K21.9 Gastro-esophageal reflux disease without esophagitis; R00.0 Tachycardia, unspecified; Z88.8 Allergy status to other drugs, medicaments and biological substances; I25.2 Old myocardial infarction; Z90.710 Acquired absence of both cervix and uterus; Z87.891 Personal history of nicotine dependence; Z98.890 Other specified postprocedural states; Z79.899 Other long term (current) drug therapy
CPT/HCPCS: 0241U; 36415; 36600; 71045; 80048; 80053; 82805; 83735; 83880; 84484; 85025; 87633; 93005; 94640; 94644; 94660; 94760; 94762; 96365; J0456; J0696; J1650; J2470; J2919; J3475; J7050; J7611; J7620; J7626; J7644

== ENCOUNTER 2025-04-10 09:46 | Outpatient (CLI) | payer OTHER | END 2025-04-10 09:47 | disposition home or self-care (01) | LOC: CSHULT 09:46 | PROVIDERS: ATTEND Otolaryngology Plastic Surgery within the Head & Neck | DX: E04.2 Nontoxic multinodular goiter (principal) | CPT/HCPCS: 76536 ==